=== PATIENT | male | born 1970 | race Caucasian/White ===

== ENCOUNTER → 2018-03-06 | Day surgery (SDC) | payer OTHER ==
[~2018-03-06] MED LIST: BUPIVACAINE HCL 0.5% 10ML MPF VIAL INJ ONE; CHOLESTEROL MED; FENTANYL CITRATE/PF 100MCG/2 ML INJ ONE; INVOKANA; IOPAMIDOL 200 MG/ML 20 ML VIAL IT ONE; KETAMINE HCL INJ 50 MG/ML 10 ML VIAL ONE; LIDOCAINE HCL 1% LOCAL INJ 20 ML VIAL ONE; LIDOCAINE HCL 2% LOCAL INJ 5 ML SDV VIAL INJ ONE; MIDAZOLAM HCL 2 MG/2 ML VIAL ONE; PROPOFOL IV EMULSION 10 MG/ML 20 ML VIAL ONE; TRIAMCINOLONE ACET 40 MG/ML VIAL ONE
--- NOTE | 2018-03-06 10:47 | Operative Report ---
DATE OF PROCEDURE: March 06, 2018 PREOPERATIVE DIAGNOSIS: Osteoarthritis, left hip. POSTOPERATIVE DIAGNOSIS: Osteoarthritis, left hip. PROCEDURE: Left hip fluoroscopic-guided corticosteroid injection. INDICATIONS: The patient is a 48-year-old gentleman who complains of incapacitating pain in his left hip. His x-rays do not reveal such severe arthritis that would explain his symptoms. He states that another physician performed a fluoroscopic-guided injection some years ago. This improved his symptoms for a couple of years. He would like to have this done again. The risks and benefits have been explained. The possibility of persistent discomfort was explained. He stated he understood and wished to proceed. DESCRIPTION OF PROCEDURE: The patient was brought to the procedure room and given a MAC anesthetic. His left hip was prepped and draped in a sterile manner. A preoperative time out was performed. An 18-gauge spinal needle was placed into the hip joint. This was guided using the C-arm. About 2 mL of slightly blood-tinged synovial fluid was aspirated from the hip joint. Confirmation was further confirmed with an injection of a small amount of radiopaque dye. A mixture of 9 mL of 0.5% Marcaine and 40 mg of Kenalog were then injected into the hip. The needle was retrieved, and a Band-Aid was applied. He was transported to the recovery room in stable condition. There was no blood loss, and all needle counts were correct. Job#: [id number]
== END ==
LOC: OR 06:27
PROVIDERS: ATTEND Specialist
DX: M16.0 Bilateral primary osteoarthritis of hip (principal); M25.852 Other specified joint disorders, left hip; M25.851 Other specified joint disorders, right hip; Z87.891 Personal history of nicotine dependence; E11.9 Type 2 diabetes mellitus without complications; E78.5 Hyperlipidemia, unspecified
CPT/HCPCS: 20610; 36415; 76000; 77002; 82948; 93005; 96379; J2001 ×2; J2250; J3301; Q9966

== ENCOUNTER → 2018-05-29 | Day surgery (SDC) | payer OTHER ==
[~2018-05-29] MED LIST changes: -IOPAMIDOL 200 MG/ML 20 ML VIAL IT ONE; +IOPAMIDOL 610MG/1ML 300 MG/ML VIAL IV ONE; -KETAMINE HCL INJ 50 MG/ML 10 ML VIAL ONE; -LIDOCAINE HCL 1% LOCAL INJ 20 ML VIAL ONE; -LIDOCAINE HCL 2% LOCAL INJ 5 ML SDV VIAL INJ ONE
--- OUTSIDE RECORDS SUMMARY | 2018-05-29 09:00 | XMS REPORT | Continuity of Care Document ---
Author Author [facility] [address] [facility] Interface Address Unknown Phone Unavailable Problems Problem Status Onset Date Classification Date Reported Comments Source SOB Active Diagnosis 02/03/2018 [facility] Dizziness Active Diagnosis 02/03/2018 [facility] Precordial chest pain Active Diagnosis 02/03/2018 [facility] Abnormal EKG Active Diagnosis 02/03/2018 [facility] Other symptoms involving cardiovascular system Active Diagnosis 02/03/2018 [facility] Abnormal stress test Active Diagnosis 02/03/2018 [facility] Medications Medication Details Route Status Patient Instructions Ordering Provider Order Date Source Tricor 1 tablet with food Orally Active 145 MG Orally Once a day Jennifer 02/01/2018 [facility] Nitroglycerin take 1 tab up to 3 tabs 5 minutes apart, fter third tablet call 911 Sublingual Active 0.4 MG Sublingual as needed Jennifer 01/23/2018 [facility] Aspirin 1 tablet Orally Active 81 MG Orally Once a day Jennifer [facility] Allergies, Adverse Reactions, Alerts Substance Category Reaction Severity Reaction type Status Date Reported Comments Source N.K.D.A. Adverse Reaction Info Not Available Adverse Reaction Active 02/01/2018 [facility] Immunizations Immunization Date Given Site Status Last Updated Comments Source Results Order Name Results Value Reference Range Date Interpretation Comments Source Vital Signs Vital Sign Value Date Comments Source Weight 287 02/01/2018 [facility] Height 80 02/01/2018 [facility] Heart Rate 60 02/01/2018 [facility] Diastolic (mm Hg) 78 02/01/2018 [facility] Systolic (mm Hg) 138 02/01/2018 [facility] Weight 288 01/23/2018 [facility] Height 80 01/23/2018 [facility] Heart Rate 68 01/23/2018 [facility] Diastolic (mm Hg) 78 01/23/2018 [facility] Systolic (mm Hg) 138 01/23/2018 [facility] Encounters Location Location Details Encounter Type Encounter Number Reason For Visit Attending Provider ADM Date DC Date Status Source Procedures Procedure Code Date Perfomer Comments Source
[2018-05-29 10:45] VITALS: BP 117/71
--- NOTE | 2018-05-29 11:56 | Operative Report ---
DATE OF PROCEDURE: May 29, 2018 PREOPERATIVE DIAGNOSIS: Osteoarthritis, right hip. POSTOPERATIVE DIAGNOSIS: Osteoarthritis, right hip. PROCEDURE: Right fluoroscopic-guided corticosteroid injection. INDICATIONS: The patient is a 48-year-old gentleman who has osteoarthritis of his right hip. He would like to proceed with a corticosteroid injection under fluoroscopy. The risks and benefits were explained. He stated he understood and wished to proceed. DESCRIPTION OF PROCEDURE: The patient was brought to the operating room. He was given a MAC anesthetic. His right hip was prepped and draped in a sterile manner. A preoperative time out was performed. Under C-arm guidance, an 18-gauge needle was placed into the inferior recess of the hip joint. Intra-articular positioning was confirmed with an injection of a small amount of radiopaque dye. A mixture of 9 mL of Marcaine and 40 mg of Solu-Medrol was then injected into the hip joint. Dilution of the intra-articular dye was noted. The needle was retrieved, and a Band-Aid was applied. The patient was transported to the recovery room in stable condition. There was no blood loss, and all needle and sponge counts were correct. Job#: [id number]
== END | disposition home or self-care (01) ==
LOC: OR 08:56
PROVIDERS: ATTEND Specialist
DX: M16.0 Bilateral primary osteoarthritis of hip (principal); M76.21 Iliac crest spur, right hip; M76.22 Iliac crest spur, left hip; E11.9 Type 2 diabetes mellitus without complications; E66.9 Obesity, unspecified; R00.1 Bradycardia, unspecified; Z79.84 Long term (current) use of oral hypoglycemic drugs; Z68.32 Body mass index [BMI] 32.0-32.9, adult; Z87.891 Personal history of nicotine dependence
CPT/HCPCS: 20610; 36415; 77002; 82948; 93005; J2250; J3301; Q9967